=== PATIENT | male | born 1985 | race Asian ===

== ENCOUNTER 2022-03-10 08:03 | Emergency (ER) | payer OTHER ==
[2022-03-10 09:13] LABS: Absolute Lymphocytes (CBC) 2.9 K/uL (0.7-4.9); Hematocrit 46.4 % (39.6-49.0); Lymphocytes % 18.3 % (15.3-44.8); MCV 89.8 fL (80-100); MPV 7.8 fL (7.6-11.3); RBC Red Blood Cell Count 5.17 M/uL (4.33-5.43)
[2022-03-10] MEDS ORDERED: ONDANSETRON 4 MG/2 ML VIAL ONE (09:19)
[2022-03-10] MEDS ORDERED: FAMOTIDINE 20 MG/2 ML VIAL IV ONE (09:19)
[2022-03-10] MEDS ORDERED: MORPHINE 4 MG/ML SYR ONE (09:19)
[2022-03-10] MEDS ORDERED: NA CHLORIDE 0.9% 1,000 ML ONE ×2 (09:19→09:59)
--- NOTE | 2022-03-10 09:30 | RAD REPORT ---
EXAM DESCRIPTION: CT - Stone Protocol - 03/10/2022 9:08 am CLINICAL HISTORY: right flank pain COMPARISON: No comparisons TECHNIQUE: Axial 3 mm thick images were obtained without oral or IV contrast. The [id number] span s the entirety of the system including uppermost abdomen and lung bases. All CT scans are performed using dose optimization technique as appropriate and may include automated exposure control or mA/KV adjustment according to patient size. FINDINGS: There is mild right-sided hydronephrosis to the mid ureter level where there is a 7 millim eter obstructing calculus. Distal to the calcification the ureter is decompressed. No additional righ t-sided calculi seen. Patient has multiple nonobstructing 2-3 mm sized calyx calculi. Minimal edema o f the right kidney is present. No perinephric stranding. No suspicious renal masses. Isodense masses and pyelonephritis are not excluded on a stone protocol CT scan. No significant adrenal finding. Urin link bladder is mostly contracted limiting detail. No bladder calculi seen. Imaged portions of the liver, spleen and pancreas show no suspicious findings on non-contrast imaging . Patient does have fatty infiltration of the liver. No gallbladder or biliary tree abnormality ident ified. No suspicious bowel findings. Appendix is normal. No active GI process. No hernia, mass or bulky lymphadenopathy noted. No free air, free fluid or inflammatory stranding. No significant bony abnormality. IMPRESSION: Mild right-sided hydronephrosis secondary to a 7 millimeter obstructing calculus in the mid right ureter. Multiple nonobstructing left-side calyx calculi. Fatty infiltration of the liver. Isodense masses and pyelonephritis are not excluded on stone protocol technique.
[2022-03-10 09:41] LABS: Albumin 4.2 g/dL (3.4-5.0); Bilirubin Total 0.7 mg/dL (0.2-1.0); Potassium 3.8 mmol/L (3.5-5.1); Protein, Total 9.2 g/dL (6.4-8.2)
[2022-03-10] MEDS ORDERED: KETOROLAC 30 MG/ML INJ ONE (09:59)
[2022-03-10] MEDS ORDERED: TAMSULOSIN 0.4 MG SR CAP ONE (09:59)
[2022-03-10 11:03] LABS: Urine Blood 3+ (Negative); Urine Glucose Negative (Negative); Urine Protein 1+ (Negative); Urine Specific Gravity 1.025 (1.005-1.030); Urine pH 5.5 (5.0-7.0)
--- NOTE | 2022-03-10 14:13 | EDPHYS ---
Physician Documentation [facility] Name: Chad Montague III Age: 36 yrs Sex: Male : 1985 Arrival Date: 03/10/2022 Time: 08:05 Bed Treatment Private MD: ED Physician Juana Guevara HPI: 03/10 08:55 This 36 yrs old Male presents to ER via Ambulatory with complaints of LRQ Pain. jmm 08:55 The patient presents with abdominal pain in the lower abdomen. Onset: The jmm symptoms/episode began/occurred acutely, this morning. The symptoms do not radiate. Associated signs and symptoms: Pertinent positives: nausea. The symptoms are described as achy. Modifying factors: The symptoms are alleviated by nothing, the symptoms are aggravated by nothing. This is a 36 year old male with no chronic medical conditions that presents to the ED with complaints of right lower abdominal pain beginning acutely this evening. Patient states he has had a history of kidney stones. Denies fever. . Historical: - Allergies: 10:36 No Known Allergies; ap3 - Home Meds: 10:36 None [Active]; ap3 - PMHx: 10:36 None; ap3 - Immunization history:: Adult Immunizations up to date. - Social history:: Smoking status: Patient denies any tobacco usage or history of. ROS: 08:55 Constitutional: Negative for fever, chills, and weight loss, Cardiovascular: Negative jmm for chest pain, palpitations, and edema, Respiratory: Negative for shortness of breath, cough, wheezing, and pleuritic chest pain. 08:55 Abdomen/GI: Positive for abdominal pain, nausea. 08:55 All other systems are negative. Exam: 08:55 Head/Face: atraumatic. Eyes: EOMI, no conjunctival erythema appreciated ENT: Moist jmm Mucus Membranes Neck: Trachea midline, Supple Chest/axilla: Normal chest wall appearance and motion. Cardiovascular: Regular rate and rhythm. No edema appreciated Respiratory: Normal respirations, no respiratory distress appreciated 08:55 Back: Normal ROM Skin: General appearance color normal MS/ Extremity: Moves all extremities, no obvious deformities appreciated, no edema noted to the lower extremities Neuro: Awake and alert Psych: Behavior is normal, Mood is normal, Patient is cooperative and pleasant 08:55 Constitutional: The patient appears alert, awake, uncomfortable. 08:55 Abdomen/GI: Inspection: abdomen appears normal, Bowel sounds: normal, Palpation: soft, moderate abdominal tenderness, in the right lower quadrant. Vital Signs: 08:48 BP 130 / 107; Pulse 108; Resp 18; Temp 96.4; Pulse Ox 98% ; Weight 108.86 kg; Height 5 5 ft. 6 in. (167.64 cm); Pain 10/10; 08:48 Body Mass Index 38.74 (108.86 kg, 167.64 cm) 5 MDM: 08:55 Patient medically screened. [facility] 14:11 Data reviewed: vital signs, nurses notes. Counseling: I had a detailed discussion with [facility] the patient and/or guardian regarding: the historical points, exam findings, and any diagnostic results supporting the discharge/admit diagnosis, lab results, radiology results, the need for outpatient follow up, to return to the emergency department if symptoms worsen or persist or if there are any questions or concerns that arise at home. ED course: Pain alleviated in the ED. Patient advised to follow up with urology and otherwise given strict return precautions Patient understood and agrees with the plan of care. . 03/10 08:55 Order name: CBC with Diff; Complete Time: 09:17 [facility] 03/10 08:55 Order name: CMP; Complete Time: 09:47 [facility] 03/10 08:55 Order name: Lipase; Complete Time: 09:47 [facility] 03/10 08:55 Order name: CT Stone Protocol; Complete Time: 09:40 [facility] 03/10 11:03 Order name: Urine Dipstick-Ancillary; Complete Time: 11:14 [facility] 03/10 08:55 Order name: IV Saline Lock; Complete Time: 09:07 [facility] 03/10 08:55 Order name: Labs collected and sent; Complete Time: 09:07 [facility] 03/10 08:55 Order name: Urine Dipstick-Ancillary (obtain specimen); Complete Time: 11:02 [facility] Administered Medications: :17 Drug: NS 0.9% 1000 ml Route: IV; Rate: 1 bolus; Site: left antecubital; ap3 11:44 Follow up: IV Status: Completed infusion; IV Intake: 1000ml ap3 09:17 Drug: morphine 4 mg Route: IVP; Infused Over: 4 mins; Site: left antecubital; ap3 09:54 Follow up: Response: No adverse reaction; Pain is unchanged, physician notified ap3 09:18 Drug: Pepcid (famotidine) 20 mg Route: IVP; Site: left antecubital; ap3 09:54 Follow up: Response: No adverse reaction ap3 09:18 Drug: Zofran (Ondansetron) 4 mg Route: IVP; Site: left antecubital; ap3 09:54 Follow up: Response: No adverse reaction ap3 09:53 Drug: Flomax (tamsulosin) 0.4 mg Route: PO; ap3 10:31 Follow up: Response: No adverse reaction ap3 09:53 Drug: Ketorolac 30 mg Route: IVP; Site: left antecubital; ap3 10:31 Follow up: Response: No adverse reaction; Pain is decreased ap3 11:44 Drug: NS 0.9% 1000 ml Route: IV; Rate: 1 bolus; Site: left antecubital; ap3 14:30 Follow up: IV Status: Completed infusion; IV Intake: 1000ml ap3 Disposition Summary: 03/10/22 14:12 Discharge Ordered Location: Home [facility] Condition: Stable [facility] Diagnosis - Calculus of ureter [facility] Followup: [facility] - With: Private Physician - When: 2 - 3 days - Reason: Recheck today's complaints, Continuance of care, Re-evaluation by your physician Followup: [facility] - With: Thomas Oh MD - When: 2 - 3 days - Reason: Recheck today's complaints, Continuance of care, Re-evaluation by your physician Discharge Instructions: - Discharge Summary Sheet [facility] - Kidney Stones [facility] - Dietary Guidelines to Help Prevent Kidney Stones [facility] Forms: - Medication Reconciliation Form [facility] - Thank You Letter [facility] - Antibiotic Education [facility] - Prescription Opioid Use [facility] - Work release form ap3 Prescriptions: - ondansetron 4 mg Oral tablet,disintegrating - take 1 tablet by ORAL route every 4-6 hours As needed; 20 tablet; Refills: 0, [facility] Product Selection Permitted - Ultracet 37.5-325 mg Oral Tablet - take 1 tablet by ORAL route every 6 hours - for up to 5 days; do not exceed 8 jmm tablets per day.; 30 tablet; Refills: 0, Product Selection Permitted - tamsulosin 0.4 mg Oral capsule - take 1 capsule by ORAL route once daily for 10 days 1/2 hour following the same jmm meal each day; 10 capsule; Refills: 0, Product Selection Permitted Signatures: Dispatcher [employer] Sami Carbajal PA PA jmm Prokisch, Amanda, RN RN ap3 Arline Blankenship RN RN jh5
--- NOTE | 2022-03-10 14:13 | ER ---
Nurse's Notes [facility] Name: Chad Montague III Age: 36 yrs Sex: Male : 1985 Arrival Date: 03/10/2022 Time: 08:05 Bed Treatment Private MD: Diagnosis: Calculus of ureter Presentation: 03/10 08:48 Chief complaint: Patient states: right lower quad abdominal pain, since 5am. Denies [facility] trouble or pain when urinating. Coronavirus screen: Vaccine status: Patient reports receiving the 2nd dose of the covid vaccine. Ebola Screen: Patient negative for fever greater than or equal to 101.5 degrees Fahrenheit, and additional compatible Ebola Virus Disease symptoms Patient denies exposure to infectious person. Patient denies travel to an Ebola-affected area in the 21 days before illness onset. Initial Sepsis Screen: Does the patient meet any 2 criteria? No. Patient's initial sepsis screen is negative. Does the patient have a suspected source of infection? No. Patient's initial sepsis screen is negative. Risk Assessment: Do you want to hurt yourself or someone else? Patient reports no desire to harm self or others. Onset of symptoms was March 10, 2022 at 08:50. 08:48 Method Of Arrival: Ambulatory [facility] 08:48 Acuity: MARILYN 3 [facility] Triage Assessment: 08:48 General: Appears uncomfortable, Behavior is calm, cooperative, anxious, crying. [facility] Historical: - Allergies: 10:36 No Known Allergies; ap3 - Home Meds: 10:36 None [Active]; ap3 - PMHx: 10:36 None; ap3 - Immunization history:: Adult Immunizations up to date. - Social history:: Smoking status: Patient denies any tobacco usage or history of. Screenin:34 Abuse screen: Denies threats or abuse. Nutritional screening: No deficits noted. ap3 Tuberculosis screening: No symptoms or risk factors identified. Fall Risk No fall in past 12 months (0 pts). No secondary diagnosis (0 pts). IV access (20 points). Ambulatory Aid- None/Bed Rest/Nurse Assist (0 pts). Gait- Normal/Bed Rest/Wheelchair (0 pts) Mental Status- Oriented to own ability (0 pts). Total Kay Fall Scale indicates No Risk (0-24 pts). Assessment: 09:15 General: Appears uncomfortable, Behavior is calm. Pain: Complains of pain in right ap3 lower quadrant. Neuro: Level of Consciousness is awake, alert, obeys commands, Oriented to person, place, time, situation. Cardiovascular: Patient's skin is warm and dry. Respiratory: Airway is patent Respiratory effort is even, unlabored. GI: Reports lower abdominal pain, nausea. 10:32 Reassessment: Patient and/or family updated on plan of care and expected duration. Pain ap3 level reassessed. Patient is alert, oriented x 3, equal unlabored respirations, skin warm/dry/pink. Patient states symptoms have improved. 11:00 Reassessment: Patient and/or family updated on plan of care and expected duration. Pain ap3 level reassessed. Patient is alert, oriented x 3, equal unlabored respirations, skin warm/dry/pink. 11:44 Reassessment: Patient and/or family updated on plan of care and expected duration. Pain ap3 level reassessed. Patient is alert, oriented x 3, equal unlabored respirations, skin warm/dry/pink. 12:57 Reassessment: Patient and/or family updated on plan of care and expected duration. Pain ap3 level reassessed. Patient is alert, oriented x 3, equal unlabored respirations, skin warm/dry/pink. Vital Signs: 08:48 BP 130 / 107; Pulse 108; Resp 18; Temp 96.4; Pulse Ox 98% ; Weight 108.86 kg; Height 5 5 ft. 6 in. (167.64 cm); Pain 10/10; 08:48 Body Mass Index 38.74 (108.86 kg, 167.64 cm) [facility] ED Course: 08:05 Patient arrived in ED. mr 08:06 Sami Choudhury PA is PHCP. jmm 08:06 Juana Guevara MD is Attending Physician. [facility] 08:48 Arm band placed on right wrist. [facility] 08:50 Triage completed. [facility] 08:53 Klaudia Deutsch, BIN is Primary Nurse. ap3 09:06 Inserted saline lock: 20 gauge in left antecubital area, using aseptic technique. Blood kc6 collected. 09:06 CBC with Diff Sent. kc6 09:06 CMP Sent. kc6 09:07 Lipase Sent. kc6 09:09 CT Stone Protocol In Process Unspecified. EDMS 10:34 Patient has correct armband on for positive identification. Bed in low position. Call ap3 light in reach. Side rails up X 1. Adult w/ patient. Pulse ox on. NIBP on. Door closed. Noise minimized. 14:14 Thomas Oh MD is Referral Physician. parvin 14:29 No provider procedures requiring assistance completed. IV discontinued, intact, ap3 bleeding controlled, No redness/swelling at site. Pressure dressing applied. Administered Medications: 09:17 Drug: NS 0.9% 1000 ml Route: IV; Rate: 1 bolus; Site: left antecubital; ap3 11:44 Follow up: IV Status: Completed infusion; IV Intake: 1000ml ap3 09:17 Drug: morphine 4 mg Route: IVP; Infused Over: 4 mins; Site: left antecubital; ap3 09:54 Follow up: Response: No adverse reaction; Pain is unchanged, physician notified ap3 09:18 Drug: Pepcid (famotidine) 20 mg Route: IVP; Site: left antecubital; ap3 09:54 Follow up: Response: No adverse reaction ap3 09:18 Drug: Zofran (Ondansetron) 4 mg Route: IVP; Site: left antecubital; ap3 09:54 Follow up: Response: No adverse reaction ap3 09:53 Drug: Flomax (tamsulosin) 0.4 mg Route: PO; ap3 10:31 Follow up: Response: No adverse reaction ap3 09:53 Drug: Ketorolac 30 mg Route: IVP; Site: left antecubital; ap3 10:31 Follow up: Response: No adverse reaction; Pain is decreased ap3 11:44 Drug: NS 0.9% 1000 ml Route: IV; Rate: 1 bolus; Site: left antecubital; ap3 14:30 Follow up: IV Status: Completed infusion; IV Intake: 1000ml ap3 Medication: 10:36 VIS not applicable for this client. ap3 Intake: 11:44 IV: 1000ml; Total: 1000ml. ap3 14:30 IV: 1000ml; Total: 2000ml. ap3 Outcome: 14:12 Discharge ordered by . [facility] 14:29 Discharged to home ambulatory. ap3 14:29 Condition: good 14:29 Discharge instructions given to patient, Instructed on discharge instructions, follow up and referral plans. Demonstrated understanding of instructions, follow-up care, medications, Prescriptions given X 3. 14:30 Patient left the ED. ap3 Signatures: Dispatcher [employer] EDSami Bethea PA PA jmm Rivera, Mary mr La Nena, Klaudia, RN RN ap3 Arline Blankenship RN RN jh5 Jenelle [id number]
[2022-03-11 17:40] VITALS: BP 130/107; TEMP 96.4; O2SAT 98
== END 2022-03-10 14:30 | disposition home or self-care (01) ==
LOC: ER 08:03
DX: N20.1 Calculus of ureter (principal)
CPT/HCPCS: 85025; 36415; 81003; 83690; 80053; 76377; 74176; J7030 ×2; J2405; 96361; 96374; 96375; 99284